=== PATIENT | male | born 1955 | race Caucasian/White ===

== ENCOUNTER 2016-11-12 09:17 | Emergency (ER) | payer OTHER ==
[2016-11-12] MEDS ORDERED: Aspirin Low Dose CHEW TAB* 81 MG PO ONE (11:30)
[2016-11-12 12:03] LABS: Hematocrit 44 % (42-52); Mean Corpuscular HGB Conc 34 g/dl (31-36); Mean Corpuscular Hemoglobin 33 pg (27-31); Mean Corpuscular Volume 95 fL (80-94); Mean Platelet Volume 8 um3 (7.4-10.4); Red Cell Distribution Width 13 % (10.5-15)
[2016-11-12] MEDS ORDERED: Metoprolol Tartrate TAB* 25 MG PO ONE (12:05)
[2016-11-12 12:18] LABS: Albumin 4.1 g/dL (3.2-5.2); BUN/Creatinine Ratio 10.8 (8-20); Calcium 9.1 mg/dL (8.6-10.3); EGFR African American 106.6 (>60); EGFR Non-African American 82.9 (>60); Globulin 2.9 g/dL (2-4); Potassium 3.8 mmol/L (3.5-5.0); Total Bilirubin 0.4 mg/dL (0.2-1.0)
[2016-11-12 12:20] LABS: Troponin I 0.01 ng/mL (<0.04)
--- NOTE | 2016-11-12 12:51 | RAD ---
INDICATION: Palpitations COMPARISON: None TECHNIQUE: An AP portable view obtained at 1220 hours is submitted. FINDINGS: Bones/Soft Tissues: There are no acute bony findings. Cardiomediastinal: The cardiomediastinal silhouette is normal. Lungs: There are no infiltrates. Pleura: There are no pleural effusions. Other: None IMPRESSION: NEGATIVE EXAMINATION.
[2016-11-12 12:55] LABS: T4 5.01 mcg/mL (6.09-12.23)
[2016-11-12 12:56] LABS: TSH (Thyroid Stimulating Horm) 2.37 mcIU/mL (0.34-5.60)
[2016-11-12 14:15] VITALS: BP 157/86
--- NOTE | 2016-11-15 14:49 | ED ---
India Bethea Thomas, scribed for Chris Wyatt MD on 11/12/16 at 1223 . Palpitations / Dysrhythmia - HPI Summary HPI Summary: The pt is a 61 y/o M BIBA and c/o an episode of palpitations characterized as racing that occurred today at 07:15. The palpitations lasted 15 minutes and are fully relieved at time of examination. He reports feeling weak this AM. Pt denies CP, LIMON, blurry vision, SOB, N/V, and fever. He drank 2 cups of coffee this AM, which is normal for him. He says he drinks a 6-pack of beer daily. He begins to drink in the afternoon and does not drink in the morning. He drank his normal amount of alcohol last night. He did not drink this AM. He denies withdrawal symptoms in the ED and he denies having ever had withdrawal symptoms. He was not under excessive stress this AM. He did smoke a pipe this AM and he used his normal amount of tobacco. He does not take any daily medication and he denies any medical problems. He is accompanied by his , daughter, son-in-law, and grandchild. 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 - History of Current Complaint Chief Complaint: EDHypertension Time Seen by Provider: 11/12/16 11:53 Hx Obtained From: Patient, Family/Vacuum Cleaner Repairer - family present in the room Onset/Duration: Sudden Onset, Lasting Minutes - palpitations lasted 15 minutes, Resolved Severity Currently: None Character: Fast Aggravating: Nothing Alleviating: Other - Spontaneous resolution - Allergy/Home Medications Allergies/Adverse Reactions: Allergies Allergy/AdvReac Type Severity Reaction Status Date / Time No Known Allergies Allergy Verified 11/12/16 11:16 PMH/Surg Hx/FS Hx/Imm Hx Previously Healthy: Yes Endocrine/Hematology History: Denies: Hx Diabetes Cardiovascular History: Denies: Hx Myocardial Infarction - Surgical History Surgery Procedure, Year, and Place: None - Immunization History Immunizations Up to Date: Unable to Obtain/Confirm Infectious Disease History: No Infectious Disease History: Denies: Traveled Outside the [place] in Last 30 Days - Family History Known Family History: Positive: Diabetes Negative: Hypertension - Social History Alcohol Use: Daily Alcohol Amount: 6 pack Substance Use Type: Reports: None Smoking Status (MU): Current Every Day Smoker Type: Pipe Review of Systems Negative: Fever, Chills Negative: Erythema - eyes Negative: Sore Throat, Other - NEGATIVE: blurry vision Positive: Palpitations - episode of fast palpitations this AM at 07:15. resolved after 15 minutes. Negative: Chest Pain Negative: Shortness Of Breath, Cough Negative: Abdominal Pain, Vomiting, Nausea Negative: dysuria, hematuria Negative: Myalgia, Edema - legs Negative: Rash Neurological: Other - NEGATIVE: dizziness Positive: Weakness. Negative: Headache All Other Systems Reviewed And Are Negative: Yes Physical Exam - Summary Physical Exam Summary: Constitutional: Well-developed, Well-nourished, Alert. (-) Distressed Skin: Warm, Dry HENT: Normocephalic; Atraumatic Eyes: Conjunctiva normal Neck: Musculoskeletal ROM normal neck. (-) JVD, (-) Stridor, (-) Tracheal deviation Cardio: Rhythm regular, rate normal, Heart sounds normal; Intact distal pulses; The pedal pulses are 2+ and symmetric. Radial pulses are 2+ and symmetric. (-) Murmur Pulmonary/Chest wall: Effort normal. (-) Respiratory distress, (-) Wheezes, (-) Rales Abd: Soft, (-) Tenderness, (-) Distension, (-) Guarding, (-) Rebound Musculoskeletal: (-) Edema Lymph: (-) Cervical adenopathy Neuro: Alert, Oriented x3 Psych: Mood and affect Normal Triage Information Reviewed: Yes Vital Signs On Initial Exam: Initial Vitals Temp Pulse Resp BP Pulse Ox 99.7 F 95 13 163/87 93 11/12/16 09:22 11/12/16 09:22 11/12/16 09:22 11/12/16 09:22 11/12/16 09:22 Vital Signs Reviewed: Yes Diagnostics - Vital Signs Vital Signs Temp Pulse Resp BP Pulse Ox 11/12/16 11:37 96 11/12/16 11:30 163/95 11/12/16 11:21 89 16 96 11/12/16 11:00 86 15 155/84 96 11/12/16 10:30 84 10 159/88 96 11/12/16 10:00 95 18 166/87 97 11/12/16 09:30 177/91 11/12/16 09:25 99 15 97 09/26/17 09:24 163/87 11/12/16 09:22 99.7 F 95 13 93 - Laboratory Lab Results: Lab Results 11/12/16 11/12/16 11/12/16 Range/Units 11:50 11:50 11:50 WBC 9.0 (3.5-10.8) 10^3/ul RBC 4.60 (4.0-5.4) 10^6/ul Hgb 15.0 (14.0-18.0) g/dl Hct 44 (42-52) % MCV 95 H (80-94) fL MCH 33 H (27-31) pg MCHC 34 (31-36) g/dl RDW 13 (10.5-15) % Plt Count 222 (150-450) 10^3/ul MPV 8 (7.4-10.4) um3 Neut % (Auto) 77.7 (38-83) % Lymph % (Auto) 13.7 L (25-47) % [place] % (Auto) 7.7 (1-9) % Eos % (Auto) 0.2 (0-6) % Baso % (Auto) 0.7 (0-2) % Absolute Neuts (auto) 7.0 (1.5-7.7) 10^3/ul Absolute Lymphs (auto) 1.2 (1.0-4.8) 10^3/ul Absolute Monos (auto) 0.7 (0-0.8) 10^3/ul Absolute Eos (auto) 0 (0-0.6) 10^3/ul Absolute Basos (auto) 0.1 (0-0.2) 10^3/ul Absolute Nucleated RBC 0 10^3/ul Nucleated RBC % 0 Sodium 136 (133-145) mmol/L Potassium 3.8 (3.5-5.0) mmol/L Chloride 104 (101-111) mmol/L Carbon Dioxide 25 (22-32) mmol/L Anion Gap 7 (2-11) mmol/L BUN 10 (6-24) mg/dL Creatinine 0.93 (0.67-1.17) mg/dL Est GFR ( Amer) 106.6 (>60) Est GFR (Non-Af Amer) 82.9 (>60) BUN/Creatinine Ratio 10.8 (8-20) Glucose 106 H (70-100) mg/dL Lactic Acid 1.5 (0.5-2.0) mmol/L Calcium 9.1 (8.6-10.3) mg/dL Magnesium 2.0 (1.9-2.7) mg/dL Total Bilirubin 0.40 (0.2-1.0) mg/dL AST 29 (13-39) U/L ALT 27 (7-52) U/L Alkaline Phosphatase 52 (34-104) U/L Troponin I 0.01 (<0.04) ng/mL Total Protein 7.0 (6.4-8.9) g/dL Albumin 4.1 (3.2-5.2) g/dL Globulin 2.9 (2-4) g/dL Albumin/Globulin Ratio 1.4 (1-3) TSH Pending Thyroxine (T4) Pending Result Diagrams: 11/12/16 11:50 11/12/16 11:50 Lab Statement: Any lab studies that have been ordered have been reviewed, and results considered in the medical decision making process. - Radiology CXR Xray Interpretation: No Acute Changes - CXR shows negative examination. ED physician has reviewed this radiology report and agrees. Radiology Interpretation Completed By: Radiologist - EKG 11:45 Cardiac Rate: NL - 81 BPM EKG Interpretation: Sinus rhythm. No STEMI. Course/Dx - Course Assessment/Plan: The pt is a 61 y/o M BIBA and c/o an episode of palpitations characterized as racing that occurred today at 07:15. The palpitations lasted 15 minutes and are fully relieved at time of examination. He reports feeling weak this AM. Pt denies CP, LIMON, blurry vision, SOB, N/V, and fever. He drank 2 cups of coffee this AM, which is normal for him. He says he drinks a 6-pack of beer daily. He begins to drink in the afternoon and does not drink in the morning. He drank his normal amount of alcohol last night. He did not drink this AM. He denies withdrawal symptoms in the ED and he denies having ever had withdrawal symptoms. He was not under excessive stress this AM. He did smoke a pipe this AM and he used his normal amount of tobacco. He does not take any daily medication and he denies any medical problems. He is accompanied by his , daughter, son-in-law, and grandchild. 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 In the ED course the patient was given ASA and metoprolol. Bloodwork shows troponin 0.01. EKG at 11:45 shows sinus rhythm at 81 BPM, no STEMI. CXR shows negative examination. ED physician has reviewed this radiology report and agrees. Patient is diagnosed with hypertension, hypothyroidism, and palpitations. Patient will be discharged home with follow up by PCP in 2-3 days. He was started on metoprolol before this follow up. He is excused from work today and tomorrow. Patient is agreeable to this plan. - Diagnoses Provider Diagnoses: Hypertension, Palpitations, Hypothyroidism Discharge - Discharge Plan Condition: Stable Disposition: HOME Prescriptions: Metoprolol Tartrate TAB* [Lopressor TAB*] 12.5 mg PO DAILY #10 tab Patient Education Materials: Palpitations (ED), Hypertension (ED), Hypothyroidism (ED) Forms: *Work Release Referrals: Curt RAY,Baltazar Grubbs [Primary Care Provider] - 2 Days Additional Instructions: Follow up with your doctor in 2-3 days. Return to the emergency department for any changing or worsening symptoms. The documentation as recorded by the India johnson Thomas accurately reflects the service I personally performed and the decisions made by me, Chris Wyatt MD.
== END 2016-11-12 15:12 | disposition home or self-care (01) ==
LOC: ED 09:17
DX: I10 Essential (primary) hypertension (principal); R53.1 Weakness; F17.210 Nicotine dependence, cigarettes, uncomplicated; R00.2 Palpitations; E03.9 Hypothyroidism, unspecified
CPT/HCPCS: 36415; 71010; 80053; 83605; 83735; 84436; 84443; 84484; 85025; 85379; 93005; 99284

== ENCOUNTER 2020-08-02 16:11 | Inpatient (IN) ==
[2020-08-02] MEDS ORDERED: methylPREDNISolone 125 mg 2 ML VIAL IV ONE (16:50)
[2020-08-02] MEDS ORDERED: Albuterol HFA INHALER 8 gm MDI INH ONE (16:50)
[2020-08-02 17:11] LABS: Hematocrit 38 % (42-52); Hemoglobin 13.4 g/dL (14.0-18.0); Mean Corpuscular HGB Conc 35 g/dL (31-36); Mean Corpuscular Hemoglobin 36 pg (27-31); Mean Corpuscular Volume 101 fL (80-94); Red Blood Count 3.78 10^6 /uL (4.18-5.48); Red Cell Distribution Width 13 % (10-15); White Blood Count 8.5 10^3/uL (3.5-10.8)
[2020-08-02 17:38] LABS: Troponin I 0.06 ng/mL (<0.03)
[2020-08-02 17:41] LABS: Mean Platelet Volume 9.4 fL (7.4-10.4); Platelet Count 66 10^3/uL (150-450)
[2020-08-02 17:47] LABS: ABS Lymphocytes 0.2 10^3/ul (1.0-4.8); ABS Monocytes 0.4 10^3/ul (0-0.8); ABS Neutrophils 7.9 10^3/ul (1.5-7.7); Lymphocyte % 2.6 %; Nucleated Red Blood Cells % 0.1
[2020-08-02 17:56] LABS: Activated Partial Thrombo Time 33.4 seconds (26.0-38.0); INR 1.35 (0.82-1.09)
[2020-08-02] MEDS ORDERED: Piperacillin/Tazobac ADVAN 3.375 GM in NS 0.9% 100 ml BAG 100 ML IV ONE (18:08)
[2020-08-02 18:11] LABS: Albumin 3.6 g/dL (3.2-5.2); CO2 Carbon Dioxide 22 mmol/L (22-32); Calcium 8.1 mg/dL (8.6-10.3); Chloride 87 mmol/L (101-111); Potassium 4.3 mmol/L (3.5-5.0)
[2020-08-02 18:14] LABS: Anion Gap 8 mmol/L (2-11); Sodium 117 mmol/L (135-145)
[2020-08-02 18:17] LABS: ALT 88 U/L (7-52); AST 164 U/L (13-39); Albumin/Globulin Ratio 1.2 (1-3); Alkaline Phosphatase 68 U/L (35-149); Blood Urea Nitrogen 16 mg/dL (6-24); C Reactive Protein 179.17 mg/L (<8.01); EGFR African American 101.8 (>60); EGFR Non-African American 84.1 (>60); Globulin 3.1 g/dL (2-4); Glucose 165 mg/dL (70-100); Total Protein 6.7 g/dL (6.4-8.9)
[2020-08-02] MEDS ORDERED: Iohexol 350 (CONTRAST) 500 ML MDV IV ONE (18:21)
[2020-08-02] MEDS ORDERED: NS 0.9% 1000 ml BAG 1,000 ML IV ONE (18:24)
[2020-08-02] MEDS ORDERED: Thiamine 100 MG/ML 2 ml VIAL 100 MG, Folic Acid IV 1 MG, Multiple Vitamin IV ADULT 10 M... IV ONE (19:30)
[2020-08-02 19:34] LABS: Alcohol, S < 10 mg/dL (<10)
[2020-08-02] MEDS ORDERED: Furosemide 20 mg/2 ml IV VIAL IV ONE (20:04)
[2020-08-02 21:42] LABS: Troponin I 0.05 ng/mL (<0.03)
[2020-08-02] MEDS ORDERED: Heparin 5000 UNITS/ML 1 mL VIAL SUBCUT SCH (22:00)
[2020-08-02] MEDS ORDERED: Zosyn per Pharmacy NOTE FOLLOW UP SCH (22:00)
[2020-08-02 22:13] LABS: Magnesium 2.4 mg/dL (1.9-2.7); Phosphorus 3.4 mg/dL (2.5-5.0)
[2020-08-02] MEDS ORDERED: Metoprolol Tartrate 5 mg VIAL 5 ml VIAL (1 mg/ml) IV PRN (22:13)
[2020-08-02] MEDS: Linezolid 600 MG IVPREMIX(*) 600 MG/300 ML BAG IVPB SCH (22:32)
[2020-08-02] MEDS ORDERED: Albuterol/Ipratropium NEB.SOL (2.5/0.5 MG) 3 ML NEB.SOLN INH SCH ×3 (23:00)
[2020-08-02 23:02] LABS: Erythrocyte Sed Rate 27 mm/Hr (0-19)
[2020-08-02 23:33] LABS: HDL Cholesterol 4.3 mg/dL
[2020-08-02] MEDS: Albuterol/Ipratropium NEB.SOL (2.5/0.5 MG) 3 ML NEB.SOLN INH SCH (23:33)
[2020-08-03] MEDS: ZOSYN 3.375 GM Q8H per EXTENDED INFUSION IV SCH ×3 (00:07→17:15)
[2020-08-03] MEDS: methylPREDNISolone SOD 40 mg/ml 1 ml VIAL IV SCH ×3 (00:47→17:15)
[2020-08-03] MEDS ORDERED: LORazepam 2 mg VIAL 1 ml IV PUSH ONE (01:04)
[2020-08-03] MEDS ORDERED: Lorazepam PYXIS KEY PRN (01:04)
[2020-08-03] MEDS ORDERED: Lorazepam PYXIS KEY ONE (01:08)
[2020-08-03 01:35] LABS: Calcium 7.7 mg/dL (8.6-10.3); EGFR African American 82.7 (>60); EGFR Non-African American 68.3 (>60)
[2020-08-03 01:36] LABS: Potassium 5.5 mmol/L (3.5-5.0)
[2020-08-03 01:57] LABS: Urine Appearance Cloudy; Urine Bilirubin Negative (Negative); Urine Blood 2+ (Negative); Urine Color Yellow; Urine Glucose Negative (Negative); Urine Ketones Negative (Negative); Urine Nitrite Negative (Negative); Urine Protein Negative (Negative); Urine Specific Gravity 1.026 (1.002-1.030); Urine Urobilinogen Negative (Negative)
[2020-08-03 02:00] LABS: Urine Bacteria Absent (Absent); Urine Red Blood Cell Trace(0-2/hpf) (Absent); Urine Squamous Epithelial Cell Present (Absent); Urine White Blood Cell Trace(0-5/hpf) (Absent)
[2020-08-03] MEDS: Albuterol/Ipratropium NEB.SOL (2.5/0.5 MG) 3 ML NEB.SOLN INH SCH ×6 (03:15→23:52)
[2020-08-03] MEDS: SODIUM ZIRCONIUM CYCLOSILICATE 5 GM PACKET PO SCH ×2 (05:33→08:46)
[2020-08-03 06:22] LABS: Activated Partial Thrombo Time 31.7 seconds (26.0-38.0); INR 1.23 (0.82-1.09)
[2020-08-03 06:32] LABS: Calcium 7.9 mg/dL (8.6-10.3); EGFR African American 101.8 (>60); EGFR Non-African American 84.1 (>60); Potassium 4.2 mmol/L (3.5-5.0)
[2020-08-03 07:08] LABS: ABS Lymphocytes 0.4 10^3/ul (1.0-4.8); ABS Monocytes 0.4 10^3/ul (0-0.8); ABS Neutrophils 8.6 10^3/ul (1.5-7.7); Hematocrit 36 % (42-52); Hemoglobin 12.8 g/dL (14.0-18.0); Lymphocyte % 4.2 %; Mean Corpuscular HGB Conc 35 g/dL (31-36); Mean Corpuscular Hemoglobin 35 pg (27-31); Mean Corpuscular Volume 101 fL (80-94); Mean Platelet Volume 9.6 fL (7.4-10.4); Platelet Count 51 10^3/uL (150-450); Red Blood Count 3.61 10^6 /uL (4.18-5.48); Red Cell Distribution Width 14 % (10-15); White Blood Count 9.4 10^3/uL (3.5-10.8)
[2020-08-03] MEDS: Nystatin TOP POWDER 15 GM BTL TOPICAL SCH ×3 (07:45→21:30)
[2020-08-03] MEDS: LORazepam 2 mg VIAL 1 ml IV PUSH SCH (08:31)
[2020-08-03] MEDS: Dexmedetomidine 1,000 MCG in NS 0.9% 250 ml 240 ML IV SCH (08:35)
[2020-08-03] MEDS: Multivitamins/Minerals TAB PO SCH (08:46)
[2020-08-03] MEDS ORDERED: Furosemide 40 mg/4 ml IV VIAL IV ONE (09:06)
[2020-08-03 09:19] LABS: Urine Appearance Clear; Urine Bilirubin Negative (Negative); Urine Blood 1+ (Negative); Urine Color Yellow; Urine Glucose Negative (Negative); Urine Ketones Negative (Negative); Urine Nitrite Negative (Negative); Urine Protein 1+(30 mg/dL) (Negative); Urine Specific Gravity 1.023 (1.002-1.030); Urine Urobilinogen Negative (Negative)
[2020-08-03 09:30] LABS: Urine Benzodiazepine Screen None Detected (None Detect); Urine Cannabinoids Screen None Detected (None Detect); Urine Opiates Screen None Detected (None Detect)
[2020-08-03 09:48] LABS: Urine Bacteria Absent (Absent); Urine Red Blood Cell Trace(0-2/hpf) (Absent); Urine Squamous Epithelial Cell Present (Absent); Urine White Blood Cell Trace(0-5/hpf) (Absent)
[2020-08-03] MEDS: Linezolid 600 MG IVPREMIX(*) 600 MG/300 ML BAG IVPB SCH ×2 (10:34→21:40)
[2020-08-03] MEDS ORDERED: Perflutren Lipid Microsphere 3 ML VIAL ONE (11:00)
[2020-08-03] MEDS: Thiamine 100 MG/ML 2 ml VIAL 500 MG in NS 0.9% 250 ml 250 ML IV SCH ×3 (14:09→23:35)
[2020-08-03 22:57] LABS: Calcium 7.9 mg/dL (8.6-10.3); EGFR African American 104.5 (>60); EGFR Non-African American 86.3 (>60); Magnesium 2.4 mg/dL (1.9-2.7); Potassium 4.2 mmol/L (3.5-5.0)
[2020-08-04] MEDS: ZOSYN 3.375 GM Q8H per EXTENDED INFUSION IV SCH ×4 (00:31→23:57)
[2020-08-04] MEDS: methylPREDNISolone SOD 40 mg/ml 1 ml VIAL IV SCH ×3 (00:37→23:57)
[2020-08-04] MEDS: Albuterol/Ipratropium NEB.SOL (2.5/0.5 MG) 3 ML NEB.SOLN INH SCH ×6 (03:53→22:43)
[2020-08-04 05:17] LABS: Hematocrit 37 % (42-52); Hemoglobin 12.9 g/dL (14.0-18.0); Mean Corpuscular HGB Conc 35 g/dL (31-36); Mean Corpuscular Hemoglobin 35 pg (27-31); Mean Corpuscular Volume 101 fL (80-94); Mean Platelet Volume 10.7 fL (7.4-10.4); Platelet Count 52 10^3/uL (150-450); Red Blood Count 3.65 10^6 /uL (4.18-5.48); Red Cell Distribution Width 14 % (10-15); White Blood Count 10.5 10^3/uL (3.5-10.8)
[2020-08-04 05:41] LABS: EGFR African American 108.7 (>60); EGFR Non-African American 89.8 (>60); Magnesium 2.5 mg/dL (1.9-2.7); Phosphorus 1.1 mg/dL (2.5-5.0); Potassium 4.1 mmol/L (3.5-5.0)
[2020-08-04 05:46] LABS: ABS Lymphocytes 0.8 10^3/ul (1.0-4.8); ABS Monocytes 1.9 10^3/ul (0-0.8); ABS Neutrophils 7.7 10^3/ul (1.5-7.7); Lymphocyte % 7.9 %; Nucleated Red Blood Cells % 0.1
[2020-08-04] MEDS ORDERED: Potassium Phosphate IV 15 MMOLE in NS 0.9% 250 ml 250 ML IVPB ONE (06:06)
[2020-08-04] MEDS: Thiamine 100 MG/ML 2 ml VIAL 500 MG in NS 0.9% 250 ml 250 ML IV SCH ×3 (06:48→21:20)
[2020-08-04] MEDS ORDERED: Lorazepam PYXIS KEY PRN ×2 (06:56→20:04)
[2020-08-04] MEDS ORDERED: LORazepam 2 mg VIAL 1 ml IV PUSH ONE ×2 (06:56→20:04)
[2020-08-04] MEDS: Multivitamins/Minerals TAB PO SCH (07:17)
[2020-08-04] MEDS: LORazepam 2 mg VIAL 1 ml IV PUSH SCH (07:25)
[2020-08-04] MEDS: Nystatin TOP POWDER 15 GM BTL TOPICAL SCH ×3 (07:31→22:41)
[2020-08-04] MEDS: Dexmedetomidine 1,000 MCG in NS 0.9% 250 ml 240 ML IV SCH (08:15)
[2020-08-04] MEDS: Linezolid 600 MG IVPREMIX(*) 600 MG/300 ML BAG IVPB SCH ×2 (10:47→22:38)
[2020-08-04] MEDS ORDERED: Lorazepam PYXIS KEY ONE (10:58)
[2020-08-04] MEDS ORDERED: LORazepam 2 mg VIAL 1 ml ONE (10:59)
[2020-08-04] MEDS: Pantoprazole VIAL 40 MG VIAL IV SCH (11:51)
[2020-08-04] MEDS: Potassium & Sodium Phos 250 mg = 1 PACKET PO SCH ×3 (11:51→22:39)
[2020-08-04] MEDS ORDERED: LORazepam 2 mg VIAL 1 ml IV PUSH SCH (12:00)
[2020-08-04] MEDS: Rifaximin 20 mg/mL Suspension (Pharmacy to Compound) FEED TUBE SCH ×2 (12:05→22:39)
[2020-08-04] MEDS ORDERED: methylPREDNISolone SOD 40 mg/ml 1 ml VIAL IV SCH ×2 (13:00→16:00)
[2020-08-04] MEDS ORDERED: Furosemide 40 mg/4 ml IV VIAL IV ONE (15:48)
[2020-08-04] MEDS: Azithromycin 500 mg/250 ml NS 500 MG/250 ML BAG IVPB SCH (16:24)
[2020-08-04 17:12] LABS: Calcium 7.5 mg/dL (8.6-10.3); EGFR African American 91.3 (>60); EGFR Non-African American 75.5 (>60); Phosphorus 1.9 mg/dL (2.5-5.0); Potassium 3.7 mmol/L (3.5-5.0)
[2020-08-05] MEDS: Albuterol 2.5mg/3 ml (0.083%) NEB.SOLN INH SCH ×2 (00:42→00:43)
[2020-08-05] MEDS: Albuterol/Ipratropium NEB.SOL (2.5/0.5 MG) 3 ML NEB.SOLN INH SCH ×6 (03:08→22:59)
[2020-08-05 05:57] LABS: Calcium 7.6 mg/dL (8.6-10.3); EGFR African American 101.8 (>60); EGFR Non-African American 84.1 (>60); Magnesium 2.7 mg/dL (1.9-2.7); Phosphorus 1.9 mg/dL (2.5-5.0)
[2020-08-05 06:10] LABS: Hematocrit 35 % (42-52); Hemoglobin 12.1 g/dL (14.0-18.0); Mean Corpuscular HGB Conc 35 g/dL (31-36); Mean Corpuscular Hemoglobin 35 pg (27-31); Mean Corpuscular Volume 100 fL (80-94); Mean Platelet Volume 10.9 fL (7.4-10.4); Platelet Count 75 10^3/uL (150-450); Red Blood Count 3.48 10^6 /uL (4.18-5.48); Red Cell Distribution Width 14 % (10-15); White Blood Count 15.8 10^3/uL (3.5-10.8)
[2020-08-05] MEDS ORDERED: Furosemide 40 mg/4 ml IV VIAL IV SLOW PU ONE (06:50)
[2020-08-05] MEDS: Thiamine 100 MG/ML 2 ml VIAL 500 MG in NS 0.9% 250 ml 250 ML IV SCH ×2 (07:02→15:47)
[2020-08-05] MEDS: methylPREDNISolone SOD 40 mg/ml 1 ml VIAL IV SCH ×3 (07:08→21:22)
[2020-08-05 07:11] LABS: ABS Basophils 0.1 10^3/ul (0-0.2); ABS Monocytes 0.1 10^3/ul (0-0.8); ABS Neutrophils 9.5 10^3/ul (1.5-7.7); ABS Nucleated RBC 0.1 10^3/ul; Lymphocyte % 38.3 %; Nucleated Red Blood Cells % 0.4
[2020-08-05] MEDS: Potassium Phosphate IV 15 MMOLE in NS 0.9% 250 ml 250 ML IVPB ONE ×2 (07:42→08:32)
[2020-08-05] MEDS: ZOSYN 3.375 GM Q8H per EXTENDED INFUSION IV SCH ×4 (07:42→23:20)
[2020-08-05] MEDS ORDERED: LORazepam 2 mg VIAL 1 ml IV PUSH ONE (08:46)
[2020-08-05] MEDS ORDERED: Lorazepam PYXIS KEY PRN (08:46)
[2020-08-05] MEDS ORDERED: Furosemide 20 mg/2 ml IV VIAL IV ONE (09:00)
[2020-08-05] MEDS: Pantoprazole VIAL 40 MG VIAL IV SCH (09:53)
[2020-08-05] MEDS: Multivitamins/Minerals TAB PO SCH (10:24)
[2020-08-05] MEDS: Potassium & Sodium Phos 250 mg = 1 PACKET PO SCH ×3 (10:24→21:22)
[2020-08-05] MEDS: Linezolid 600 MG IVPREMIX(*) 600 MG/300 ML BAG IVPB SCH ×2 (11:10→21:22)
[2020-08-05] MEDS: Nystatin TOP POWDER 15 GM BTL TOPICAL SCH ×3 (12:16→21:22)
[2020-08-05] MEDS: Rifaximin 20 mg/mL Suspension (Pharmacy to Compound) FEED TUBE SCH ×2 (16:09→21:22)
[2020-08-05] MEDS: Azithromycin 500 mg/250 ml NS 500 MG/250 ML BAG IVPB SCH (17:07)
[2020-08-05] MEDS: Dexmedetomidine 1,000 MCG in NS 0.9% 250 ml 240 ML IV SCH (17:43)
[2020-08-06] MEDS: Albuterol/Ipratropium NEB.SOL (2.5/0.5 MG) 3 ML NEB.SOLN INH SCH ×4 (02:54→19:03)
[2020-08-06] MEDS: methylPREDNISolone SOD 40 mg/ml 1 ml VIAL IV SCH ×2 (05:06→16:43)
[2020-08-06 05:11] LABS: ABS Basophils 0.1 10^3/ul (0-0.2); ABS Lymphocytes 4.3 10^3/ul (1.0-4.8); ABS Monocytes 0.2 10^3/ul (0-0.8); ABS Neutrophils 8.3 10^3/ul (1.5-7.7); ABS Nucleated RBC 0.1 10^3/ul; Hematocrit 36 % (42-52); Hemoglobin 12.4 g/dL (14.0-18.0); Lymphocyte % 33.4 %; Mean Corpuscular HGB Conc 35 g/dL (31-36); Mean Corpuscular Hemoglobin 35 pg (27-31); Mean Corpuscular Volume 100 fL (80-94); Nucleated Red Blood Cells % 0.7; Platelet Count 103 10^3/uL (150-450); Red Blood Count 3.57 10^6 /uL (4.18-5.48); Red Cell Distribution Width 14 % (10-15); White Blood Count 12.9 10^3/uL (3.5-10.8)
[2020-08-06 05:27] LABS: Calcium 7.6 mg/dL (8.6-10.3); EGFR African American 70.6 (>60); EGFR Non-African American 58.3 (>60); Magnesium 2.7 mg/dL (1.9-2.7); Phosphorus 3.4 mg/dL (2.5-5.0); Potassium 4.3 mmol/L (3.5-5.0)
[2020-08-06] MEDS: Linezolid 600 MG IVPREMIX(*) 600 MG/300 ML BAG IVPB SCH ×2 (08:55→22:13)
[2020-08-06] MEDS: Thiamine 100 MG/ML 2 ml VIAL 250 MG in NS 0.9% 100 ml BAG 100 ML IV SCH (08:55)
[2020-08-06] MEDS: Nystatin TOP POWDER 15 GM BTL TOPICAL SCH ×3 (08:55→20:19)
[2020-08-06] MEDS: Multivitamins/Minerals TAB PO SCH (08:55)
[2020-08-06] MEDS: Pantoprazole VIAL 40 MG VIAL IV SCH (08:55)
[2020-08-06] MEDS: ZOSYN 3.375 GM Q8H per EXTENDED INFUSION IV SCH ×3 (08:55→23:21)
[2020-08-06] MEDS: Potassium & Sodium Phos 250 mg = 1 PACKET PO SCH ×3 (08:55→20:13)
[2020-08-06] MEDS: Rifaximin 20 mg/mL Suspension (Pharmacy to Compound) FEED TUBE SCH ×2 (08:55→20:14)
[2020-08-06] MEDS ORDERED: Polyethylene Glycol 3350 17 GM PACKET PO PRN (09:25)
[2020-08-06] MEDS: Azithromycin 500 mg/250 ml NS 500 MG/250 ML BAG IVPB SCH (16:43)
[2020-08-06] MEDS ORDERED: Albuterol/Ipratropium NEB.SOL (2.5/0.5 MG) 3 ML NEB.SOLN ONE (18:59)
[2020-08-07 04:56] LABS: Hematocrit 35 % (42-52); Hemoglobin 11.9 g/dL (14.0-18.0); Mean Corpuscular HGB Conc 34 g/dL (31-36); Mean Corpuscular Hemoglobin 34 pg (27-31); Mean Corpuscular Volume 101 fL (80-94); Mean Platelet Volume 9.8 fL (7.4-10.4); Platelet Count 136 10^3/uL (150-450); Red Blood Count 3.46 10^6 /uL (4.18-5.48); Red Cell Distribution Width 14 % (10-15); White Blood Count 11.5 10^3/uL (3.5-10.8)
[2020-08-07 05:12] LABS: Calcium 7.7 mg/dL (8.6-10.3); EGFR African American 85.4 (>60); EGFR Non-African American 70.6 (>60); Magnesium 2.6 mg/dL (1.9-2.7); Potassium 4.3 mmol/L (3.5-5.0)
[2020-08-07 05:32] LABS: ABS Basophils 0.1 10^3/ul (0-0.2); ABS Lymphocytes 2.8 10^3/ul (1.0-4.8); ABS Monocytes 1.2 10^3/ul (0-0.8); ABS Neutrophils 7.4 10^3/ul (1.5-7.7); Lymphocyte % 24.7 %; Nucleated Red Blood Cells % 0.2
[2020-08-07] MEDS: methylPREDNISolone SOD 40 mg/ml 1 ml VIAL IV SCH ×2 (05:57→16:24)
[2020-08-07] MEDS: ZOSYN 3.375 GM Q8H per EXTENDED INFUSION IV SCH ×3 (07:26→23:31)
[2020-08-07] MEDS: Albuterol/Ipratropium NEB.SOL (2.5/0.5 MG) 3 ML NEB.SOLN INH SCH ×3 (07:32→20:34)
[2020-08-07] MEDS ORDERED: Furosemide 20 mg/2 ml IV VIAL IV SLOW PU SCH (09:00)
[2020-08-07] MEDS: Rifaximin 20 mg/mL Suspension (Pharmacy to Compound) FEED TUBE SCH (10:02)
[2020-08-07] MEDS: Potassium & Sodium Phos 250 mg = 1 PACKET PO SCH ×2 (10:34→14:16)
[2020-08-07] MEDS: Multivitamins/Minerals TAB PO SCH (10:34)
[2020-08-07] MEDS: Pantoprazole VIAL 40 MG VIAL IV SCH (10:35)
[2020-08-07] MEDS: Nystatin TOP POWDER 15 GM BTL TOPICAL SCH ×3 (10:35→20:30)
[2020-08-07] MEDS: Thiamine 100 MG/ML 2 ml VIAL 250 MG in NS 0.9% 100 ml BAG 100 ML IV SCH (10:35)
[2020-08-07] MEDS: Azithromycin 500 mg/250 ml NS 500 MG/250 ML BAG IVPB SCH (15:39)
[2020-08-07] MEDS: Heparin 5000 UNITS/ML 1 mL VIAL SUBCUT SCH (20:30)
[2020-08-08 05:39] LABS: Hematocrit 38 % (42-52); Hemoglobin 12.9 g/dL (14.0-18.0); Mean Corpuscular HGB Conc 34 g/dL (31-36); Mean Corpuscular Hemoglobin 35 pg (27-31); Mean Corpuscular Volume 101 fL (80-94); Mean Platelet Volume 9.7 fL (7.4-10.4); Platelet Count 154 10^3/uL (150-450); Red Blood Count 3.73 10^6 /uL (4.18-5.48); Red Cell Distribution Width 14 % (10-15); White Blood Count 12.6 10^3/uL (3.5-10.8)
[2020-08-08 06:00] LABS: Calcium 8.4 mg/dL (8.6-10.3); EGFR African American 95.7 (>60); EGFR Non-African American 79.1 (>60); Magnesium 2.4 mg/dL (1.9-2.7); Phosphorus 3.8 mg/dL (2.5-5.0); Potassium 4.3 mmol/L (3.5-5.0)
[2020-08-08] MEDS: methylPREDNISolone SOD 40 mg/ml 1 ml VIAL IV SCH ×2 (06:12→17:01)
[2020-08-08 06:48] LABS: ABS Basophils 0.1 10^3/ul (0-0.2); ABS Lymphocytes 2.3 10^3/ul (1.0-4.8); ABS Neutrophils 9.2 10^3/ul (1.5-7.7); Lymphocyte % 17.9 %; Nucleated Red Blood Cells % 0.1
[2020-08-08] MEDS: ZOSYN 3.375 GM Q8H per EXTENDED INFUSION IV SCH ×3 (07:07→23:05)
[2020-08-08] MEDS ORDERED: Albuterol/Ipratropium NEB.SOL (2.5/0.5 MG) 3 ML NEB.SOLN INH PRN (07:56)
[2020-08-08] MEDS: Albuterol/Ipratropium NEB.SOL (2.5/0.5 MG) 3 ML NEB.SOLN INH SCH (07:56)
[2020-08-08] MEDS: Multivitamins/Minerals TAB PO SCH (08:26)
[2020-08-08] MEDS: Heparin 5000 UNITS/ML 1 mL VIAL SUBCUT SCH ×2 (08:26→21:18)
[2020-08-08] MEDS: Pantoprazole VIAL 40 MG VIAL IV SCH (08:27)
[2020-08-08] MEDS: Thiamine 100 MG/ML 2 ml VIAL 250 MG in NS 0.9% 100 ml BAG 100 ML IV SCH (08:27)
[2020-08-08] MEDS: Nystatin TOP POWDER 15 GM BTL TOPICAL SCH ×3 (09:00→21:18)
[2020-08-08] MEDS: Azithromycin 500 mg/250 ml NS 500 MG/250 ML BAG IVPB SCH (15:52)
[2020-08-08 16:00] LABS: Albumin 3.1 g/dL (3.2-5.2); Albumin/Globulin Ratio 1.1 (1-3); Globulin 2.9 g/dL (2-4); Indirect Bilirubin 0.8 mg/dL (0.3-1.0); Total Bilirubin 1.4 mg/dL (0.2-1.0)
[2020-08-09] MEDS: Thiamine 100 MG/ML 2 ml VIAL 250 MG in NS 0.9% 100 ml BAG 100 ML IV SCH (08:00)
[2020-08-09] MEDS: Pantoprazole VIAL 40 MG VIAL IV SCH (08:04)
[2020-08-09] MEDS: Heparin 5000 UNITS/ML 1 mL VIAL SUBCUT SCH (08:05)
[2020-08-09] MEDS: Multivitamins/Minerals TAB PO SCH (08:12)
[2020-08-09] MEDS: Nystatin TOP POWDER 15 GM BTL TOPICAL SCH ×2 (08:13→13:13)
[2020-08-09] MEDS: ZOSYN 3.375 GM Q8H per EXTENDED INFUSION IV SCH ×2 (09:04→15:14)
[2020-08-09] MEDS: Azithromycin 500 mg/250 ml NS 500 MG/250 ML BAG IVPB SCH (15:14)
[2020-08-09 17:14] VITALS: BP 139/77
== END 2020-08-09 16:45 | disposition home or self-care (01) ==
LOC: ED 16:11 → ICU 20:02 → MEDTELE 08-07 21:21
PROVIDERS: ADMIT Hospitalist; ATTEND Hospitalist